=== PATIENT | female | born 1960 | race Caucasian/White ===

== ENCOUNTER 2022-03-11 22:30 | Inpatient (IN) | payer OTHER, SELFPAY ==
[2022-03-11] MEDS ORDERED: Ondansetron PF 4 MG/2 ML Vial IVP PRN (22:52)
[2022-03-11] MEDS ORDERED: Acetaminophen 325 MG TAB PO PRN (22:52)
[2022-03-11] MEDS ORDERED: Senokot S 8.6-50 MG TAB PO PRN (22:52)
[2022-03-11] MEDS ORDERED: Calcium Carbonate 500 MG ChewTAB PO PRN (22:52)
[2022-03-11] MEDS ORDERED: Guaifenesin DM 100-10/5 ML UDCUP PO PRN (22:52)
[2022-03-11] MEDS ORDERED: Nitroglycerin 0.4 MG TAB (25 Tab Bottle) SL PRN (22:55)
[2022-03-11] MEDS ORDERED: Benzonatate 100 MG CAP PO PRN (22:55)
[2022-03-11] MEDS ORDERED: methylPREDNISolone Sod Succ/PF 125 MG/2 ML VIAL IVP SCH (23:00)
[2022-03-11] MEDS ORDERED: Potassium Chloride 20 MEQ TAB PO SCH (23:15)
[2022-03-11] MEDS: Azithromycin 500 MG in Sodium Chloride 0.9% 250 ML 250 ML IVPB SCH (23:27)
[2022-03-12] MEDS: Nicotine 21 MG PATCH TD SCH ×2 (00:18→23:51)
[2022-03-12 04:40] LABS: Hemoglobin 10.6 g/dL (12.0-15.5); Mean Corpuscular HGB CONC 30.5 g/dL (32.0-36.0); Mean Corpuscular Hemoglobin 28.4 pg (27.0-33.0); Mean Corpuscular Volume 93.3 fl (81.6-98.3); Platelet Count 167 10x3/uL (150-450); RBC Distribution Width 15.5 % (11.5-14.5); Red Blood Cell (RBC) Count 3.73 10x6/uL (3.90-5.03); White Blood Cell (WBC) Count 7.4 10x3/uL (3.5-10.5)
[2022-03-12 04:55] LABS: Anion Gap 17 mmol/L (10-20); BUN (Urea Nitrogen) 15 mg/dL (9.8-20.1); Calc. Creatinine Clearance 114 mL/min (70-130); Carbon Dioxide 30 mmol/L (23-31); Chloride 101 mmol/L (98-107); Glucose 148 mg/dL (80-115); Potassium 3.8 mmol/L (3.5-5.1); Sodium 144 mmol/L (136-145)
[2022-03-12] MEDS: Furosemide 40 MG/4 ML VIAL SLOW IVP SCH ×2 (05:30→13:41)
[2022-03-12 06:23] LABS: MDiff Complete? YES
[2022-03-12 06:24] LABS: Band 9 % (5-11); Lymphocytes 5 % (21-51); Monocytes 2 % (0-10); Neutrophil 84 % (42-75)
[2022-03-12 06:26] LABS: Anisocytosis SLIGHT = 6-15 cells (100X) (0-5/hpf); Platelet Morphology Comment Appears Adequate
[2022-03-12] MEDS: Amiodarone 200 MG TAB PO SCH (09:26)
[2022-03-12] MEDS: Baclofen 10 MG TAB PO SCH ×2 (09:26→20:57)
[2022-03-12] MEDS: Apixaban 5 MG TAB PO SCH ×2 (09:26→20:56)
[2022-03-12] MEDS: Clopidogrel Bisulfate 75 MG TAB PO SCH (09:26)
[2022-03-12] MEDS: Venlafaxine HCl XR 75 MG CAP PO SCH (09:26)
[2022-03-12] MEDS: Famotidine 20 MG TAB PO SCH ×2 (09:26→20:56)
[2022-03-12] MEDS: Carvedilol 12.5 MG TAB PO SCH ×2 (09:26→20:56)
[2022-03-12] MEDS: methylPREDNISolone Sod Succ 40 MG VIAL IVP SCH ×3 (09:27→23:23)
[2022-03-12] MEDS: Senokot 8.6 MG TAB PO SCH ×2 (09:27→20:58)
[2022-03-12] MEDS: Amlodipine 10 MG TAB PO SCH (09:27)
[2022-03-12] MEDS: Pregabalin 75 MG CAP PO SCH ×3 (09:27→20:57)
[2022-03-12] MEDS: Docusate Sodium 100 MG/10 ML UDCUP PO SCH (09:27)
[2022-03-12] MEDS: guaiFENesin ER 600 MG TAB PO SCH ×2 (09:28→20:57)
[2022-03-12] MEDS: Prenatal Vitamin 1 TAB PO SCH (09:28)
[2022-03-12] MEDS: Mometasone/Formoterol 200/5 60 PUFF INH SCH ×2 (09:49→20:32)
[2022-03-12] MEDS: Atorvastatin Calcium 40 MG TAB PO SCH (20:57)
[2022-03-12] MEDS: Azithromycin 500 MG in Sodium Chloride 0.9% 250 ML 250 ML IVPB SCH (23:14)
[2022-03-13 05:56] LABS: #Monocytes 0.3 10x3/uL (0.0-1.1); #Neutrophils 7.6 10x3/uL (1.5-8.4); %Basophils 0.1 % (0.0-2.0); %Lymphocytes 5.2 % (18.0-47.0); %Neutrophils 90.2 % (40.0-75.0); Hemoglobin 10.2 g/dL (12.0-15.5); Mean Corpuscular HGB CONC 29.7 g/dL (32.0-36.0); Mean Corpuscular Hemoglobin 28.3 pg (27.0-33.0); Mean Corpuscular Volume 95.3 fl (81.6-98.3); Mean Platelet Volume 12.4 fl (7.4-10.4); Platelet Count 169 10x3/uL (150-450); RBC Distribution Width 15.6 % (11.5-14.5); Red Blood Cell (RBC) Count 3.61 10x6/uL (3.90-5.03); White Blood Cell (WBC) Count 8.4 10x3/uL (3.5-10.5)
[2022-03-13] MEDS: Furosemide 40 MG/4 ML VIAL SLOW IVP SCH ×2 (06:01→16:55)
[2022-03-13 06:11] LABS: Anion Gap 16 mmol/L (10-20); BUN (Urea Nitrogen) 25 mg/dL (9.8-20.1); Calc. Creatinine Clearance 104 mL/min (70-130); Calcium 8.9 mg/dL (7.8-10.44); Carbon Dioxide 33 mmol/L (23-31); Chloride 100 mmol/L (98-107); Glucose 160 mg/dL (80-115); Magnesium 2.5 mg/dL (1.6-2.6); Potassium 4.2 mmol/L (3.5-5.1); Sodium 145 mmol/L (136-145)
[2022-03-13] MEDS: Mometasone/Formoterol 200/5 60 PUFF INH SCH ×2 (07:10→19:21)
[2022-03-13] MEDS: Senokot 8.6 MG TAB PO SCH ×2 (08:55→23:56)
[2022-03-13] MEDS: Carvedilol 12.5 MG TAB PO SCH ×2 (08:55→20:45)
[2022-03-13] MEDS: Amlodipine 10 MG TAB PO SCH (08:55)
[2022-03-13] MEDS: Amiodarone 200 MG TAB PO SCH (08:56)
[2022-03-13] MEDS: Venlafaxine HCl XR 75 MG CAP PO SCH (08:56)
[2022-03-13] MEDS: Apixaban 5 MG TAB PO SCH ×2 (08:56→20:45)
[2022-03-13] MEDS: guaiFENesin ER 600 MG TAB PO SCH ×2 (08:56→20:45)
[2022-03-13] MEDS: methylPREDNISolone Sod Succ 40 MG VIAL IVP SCH ×2 (08:56→20:44)
[2022-03-13] MEDS: Clopidogrel Bisulfate 75 MG TAB PO SCH (08:56)
[2022-03-13] MEDS: Famotidine 20 MG TAB PO SCH ×2 (08:57→20:45)
[2022-03-13] MEDS: Prenatal Vitamin 1 TAB PO SCH (08:57)
[2022-03-13] MEDS: Baclofen 10 MG TAB PO SCH ×2 (08:57→20:44)
[2022-03-13] MEDS: Docusate Sodium 100 MG/10 ML UDCUP PO SCH (08:57)
[2022-03-13] MEDS: Pregabalin 75 MG CAP PO SCH ×2 (09:10→16:53)
[2022-03-13] MEDS: Atorvastatin Calcium 40 MG TAB PO SCH (20:45)
[2022-03-14] MEDS: Pregabalin 75 MG CAP PO SCH ×4 (00:54→21:18)
[2022-03-14] MEDS: Nicotine 21 MG PATCH TD SCH (00:54)
[2022-03-14] MEDS: Azithromycin 500 MG in Sodium Chloride 0.9% 250 ML 250 ML IVPB SCH (00:58)
[2022-03-14] MEDS: Furosemide 40 MG/4 ML VIAL SLOW IVP SCH ×2 (05:05→14:07)
[2022-03-14] MEDS: Mometasone/Formoterol 200/5 60 PUFF INH SCH ×2 (05:20→18:30)
[2022-03-14] MEDS: guaiFENesin ER 600 MG TAB PO SCH ×2 (08:45→21:18)
[2022-03-14] MEDS: methylPREDNISolone Sod Succ 40 MG VIAL IVP SCH ×2 (08:45→21:26)
[2022-03-14] MEDS: Clopidogrel Bisulfate 75 MG TAB PO SCH (08:46)
[2022-03-14] MEDS: Venlafaxine HCl XR 75 MG CAP PO SCH (08:46)
[2022-03-14] MEDS: Docusate Sodium 100 MG/10 ML UDCUP PO SCH (08:47)
[2022-03-14] MEDS: Amiodarone 200 MG TAB PO SCH (08:47)
[2022-03-14] MEDS: Baclofen 10 MG TAB PO SCH ×2 (08:47→21:17)
[2022-03-14] MEDS: Senokot 8.6 MG TAB PO SCH ×2 (08:47→21:18)
[2022-03-14] MEDS: Famotidine 20 MG TAB PO SCH ×2 (08:47→21:18)
[2022-03-14] MEDS: Prenatal Vitamin 1 TAB PO SCH (08:47)
[2022-03-14] MEDS: Carvedilol 12.5 MG TAB PO SCH ×2 (08:47→21:18)
[2022-03-14] MEDS: Apixaban 5 MG TAB PO SCH ×2 (08:47→21:17)
[2022-03-14] MEDS: Amlodipine 10 MG TAB PO SCH (08:49)
[2022-03-14] MEDS: Atorvastatin Calcium 40 MG TAB PO SCH (21:18)
[2022-03-15] MEDS: Azithromycin 500 MG in Sodium Chloride 0.9% 250 ML 250 ML IVPB SCH ×2 (00:33→23:38)
[2022-03-15] MEDS: Nicotine 21 MG PATCH TD SCH ×2 (00:49→23:39)
[2022-03-15 04:43] LABS: #Monocytes 0.4 10x3/uL (0.0-1.1); #Neutrophils 8.1 10x3/uL (1.5-8.4); %Basophils 0.1 % (0.0-2.0); %Lymphocytes 5.3 % (18.0-47.0); %Monocytes 4.1 % (0.0-10.0); %Neutrophils 90.2 % (40.0-75.0); Hemoglobin 10.6 g/dL (12.0-15.5); Mean Corpuscular HGB CONC 30.5 g/dL (32.0-36.0); Mean Corpuscular Hemoglobin 28.3 pg (27.0-33.0); Mean Platelet Volume 11.7 fl (7.4-10.4); Platelet Count 171 10x3/uL (150-450); RBC Distribution Width 15.4 % (11.5-14.5); Red Blood Cell (RBC) Count 3.74 10x6/uL (3.90-5.03)
[2022-03-15 05:00] LABS: Anion Gap 15 mmol/L (10-20); BUN (Urea Nitrogen) 29 mg/dL (9.8-20.1); Calc. Creatinine Clearance 132 mL/min (70-130); Carbon Dioxide 35 mmol/L (23-31); Chloride 98 mmol/L (98-107); Potassium 4.1 mmol/L (3.5-5.1); Sodium 144 mmol/L (136-145)
[2022-03-15 05:01] LABS: Calcium 8.8 mg/dL (7.8-10.44); Glucose 157 mg/dL (80-115); Magnesium 2.4 mg/dL (1.6-2.6)
[2022-03-15] MEDS: Furosemide 40 MG/4 ML VIAL SLOW IVP SCH ×3 (06:39→21:15)
[2022-03-15] MEDS: Mometasone/Formoterol 200/5 60 PUFF INH SCH ×2 (07:10→21:00)
[2022-03-15] MEDS: Docusate Sodium 100 MG/10 ML UDCUP PO SCH (08:31)
[2022-03-15] MEDS: methylPREDNISolone Sod Succ 40 MG VIAL IVP SCH ×2 (08:31→21:29)
[2022-03-15] MEDS: Famotidine 20 MG TAB PO SCH ×2 (08:33→21:21)
[2022-03-15] MEDS: Prenatal Vitamin 1 TAB PO SCH (08:33)
[2022-03-15] MEDS: Clopidogrel Bisulfate 75 MG TAB PO SCH (08:33)
[2022-03-15] MEDS: guaiFENesin ER 600 MG TAB PO SCH ×2 (08:33→21:21)
[2022-03-15] MEDS: Venlafaxine HCl XR 75 MG CAP PO SCH (08:33)
[2022-03-15] MEDS: Pregabalin 75 MG CAP PO SCH ×3 (08:33→21:22)
[2022-03-15] MEDS: Apixaban 5 MG TAB PO SCH ×2 (08:33→21:21)
[2022-03-15] MEDS: Amiodarone 200 MG TAB PO SCH (08:34)
[2022-03-15] MEDS: Baclofen 10 MG TAB PO SCH ×2 (08:34→21:21)
[2022-03-15] MEDS: Carvedilol 12.5 MG TAB PO SCH (08:34)
[2022-03-15] MEDS: Senokot 8.6 MG TAB PO SCH ×2 (08:34→21:21)
[2022-03-15] MEDS: Amlodipine 10 MG TAB PO SCH (08:52)
[2022-03-15] MEDS ORDERED: Lisinopril 10 MG TAB PO SCH (18:00)
[2022-03-15] MEDS: Atorvastatin Calcium 40 MG TAB PO SCH (21:21)
[2022-03-15] MEDS: Carvedilol 25 MG TAB PO SCH (21:21)
[2022-03-16] MEDS: Furosemide 40 MG/4 ML VIAL SLOW IVP SCH ×2 (04:30→22:00)
[2022-03-16 05:47] LABS: BUN (Urea Nitrogen) 35 mg/dL (9.8-20.1); Calc. Creatinine Clearance 120 mL/min (70-130); Calcium 8.9 mg/dL (7.8-10.44); Glucose 177 mg/dL (80-115)
[2022-03-16 05:56] LABS: Anion Gap 19 mmol/L (10-20); Carbon Dioxide 36 mmol/L (23-31); Chloride 94 mmol/L (98-107); Potassium 3.9 mmol/L (3.5-5.1); Sodium 145 mmol/L (136-145)
[2022-03-16] MEDS: Mometasone/Formoterol 200/5 60 PUFF INH SCH ×2 (07:24→17:23)
[2022-03-16] MEDS: Docusate Sodium 100 MG/10 ML UDCUP PO SCH (09:53)
[2022-03-16] MEDS: Lisinopril 10 MG TAB PO SCH (10:08)
[2022-03-16] MEDS: guaiFENesin ER 600 MG TAB PO SCH ×2 (10:08→22:00)
[2022-03-16] MEDS: Prenatal Vitamin 1 TAB PO SCH (10:08)
[2022-03-16] MEDS: Senokot 8.6 MG TAB PO SCH ×2 (10:08→22:00)
[2022-03-16] MEDS: Apixaban 5 MG TAB PO SCH ×2 (10:08→22:03)
[2022-03-16] MEDS: Clopidogrel Bisulfate 75 MG TAB PO SCH (10:09)
[2022-03-16] MEDS: Carvedilol 25 MG TAB PO SCH ×2 (10:09→22:00)
[2022-03-16] MEDS: Pregabalin 75 MG CAP PO SCH ×3 (10:09→22:00)
[2022-03-16] MEDS: Amiodarone 200 MG TAB PO SCH (10:09)
[2022-03-16] MEDS: Famotidine 20 MG TAB PO SCH ×2 (10:09→22:00)
[2022-03-16] MEDS: Venlafaxine HCl XR 75 MG CAP PO SCH (10:09)
[2022-03-16] MEDS: methylPREDNISolone Sod Succ 40 MG VIAL IVP SCH ×2 (10:10→22:05)
[2022-03-16] MEDS: Baclofen 10 MG TAB PO SCH ×2 (10:10→22:00)
[2022-03-16] MEDS: Amlodipine 10 MG TAB PO SCH (10:10)
[2022-03-16] MEDS: Atorvastatin Calcium 40 MG TAB PO SCH (22:00)
[2022-03-16] MEDS: Nicotine 21 MG PATCH TD SCH (23:10)
[2022-03-16] MEDS: Azithromycin 500 MG in Sodium Chloride 0.9% 250 ML 250 ML IVPB SCH (23:24)
[2022-03-17 05:10] LABS: #Monocytes 0.4 10x3/uL (0.0-1.1); #Neutrophils 10.4 10x3/uL (1.5-8.4); %Lymphocytes 4.3 % (18.0-47.0); %Monocytes 3.4 % (0.0-10.0); Hemoglobin 11.8 g/dL (12.0-15.5); Mean Corpuscular HGB CONC 30.7 g/dL (32.0-36.0); Mean Corpuscular Hemoglobin 28.2 pg (27.0-33.0); Mean Corpuscular Volume 91.6 fl (81.6-98.3); Mean Platelet Volume 11.7 fl (7.4-10.4); Platelet Count 174 10x3/uL (150-450); RBC Distribution Width 15.1 % (11.5-14.5); Red Blood Cell (RBC) Count 4.19 10x6/uL (3.90-5.03); White Blood Cell (WBC) Count 11.2 10x3/uL (3.5-10.5)
[2022-03-17 05:17] LABS: BUN (Urea Nitrogen) 33 mg/dL (9.8-20.1); Calc. Creatinine Clearance 131 mL/min (70-130); Glucose 166 mg/dL (80-115); Magnesium 2.3 mg/dL (1.6-2.6); Phosphorus 4.5 mg/dL (2.3-4.7)
[2022-03-17 05:25] LABS: Anion Gap 16 mmol/L (10-20); Carbon Dioxide 39 mmol/L (23-31); Chloride 93 mmol/L (98-107); Potassium 4.2 mmol/L (3.5-5.1); Sodium 144 mmol/L (136-145)
[2022-03-17] MEDS: Mometasone/Formoterol 200/5 60 PUFF INH SCH ×2 (06:54→18:36)
[2022-03-17] MEDS: Pregabalin 75 MG CAP PO SCH ×3 (09:00→20:42)
[2022-03-17] MEDS: Venlafaxine HCl XR 75 MG CAP PO SCH (09:00)
[2022-03-17] MEDS: Furosemide 40 MG/4 ML VIAL SLOW IVP SCH ×2 (09:00→20:42)
[2022-03-17] MEDS: methylPREDNISolone Sod Succ 40 MG VIAL IVP SCH ×2 (09:00→20:43)
[2022-03-17] MEDS: Senokot 8.6 MG TAB PO SCH ×2 (09:01→20:41)
[2022-03-17] MEDS: Carvedilol 25 MG TAB PO SCH ×2 (09:01→20:41)
[2022-03-17] MEDS: Amlodipine 10 MG TAB PO SCH (09:01)
[2022-03-17] MEDS: Amiodarone 200 MG TAB PO SCH (09:01)
[2022-03-17] MEDS: Baclofen 10 MG TAB PO SCH ×2 (09:01→20:41)
[2022-03-17] MEDS: Clopidogrel Bisulfate 75 MG TAB PO SCH (09:01)
[2022-03-17] MEDS: guaiFENesin ER 600 MG TAB PO SCH ×2 (09:01→20:42)
[2022-03-17] MEDS: Lisinopril 10 MG TAB PO SCH (09:01)
[2022-03-17] MEDS: Famotidine 20 MG TAB PO SCH ×2 (09:01→20:41)
[2022-03-17] MEDS: Apixaban 5 MG TAB PO SCH ×2 (09:01→20:41)
[2022-03-17] MEDS: Prenatal Vitamin 1 TAB PO SCH (09:02)
[2022-03-17] MEDS: Docusate Sodium 100 MG/10 ML UDCUP PO SCH (09:02)
[2022-03-17] MEDS: Atorvastatin Calcium 40 MG TAB PO SCH (20:42)
[2022-03-17] MEDS: Azithromycin 500 MG in Sodium Chloride 0.9% 250 ML 250 ML IVPB SCH (23:59)
[2022-03-18] MEDS: Nicotine 21 MG PATCH TD SCH ×3 (00:09→23:09)
[2022-03-18] MEDS: Mometasone/Formoterol 200/5 60 PUFF INH SCH ×2 (07:04→19:20)
[2022-03-18] MEDS: Docusate Sodium 100 MG/10 ML UDCUP PO SCH (08:56)
[2022-03-18] MEDS: Venlafaxine HCl XR 75 MG CAP PO SCH (08:57)
[2022-03-18] MEDS: Amiodarone 200 MG TAB PO SCH (08:57)
[2022-03-18] MEDS: Famotidine 20 MG TAB PO SCH ×2 (08:57→20:45)
[2022-03-18] MEDS: Furosemide 40 MG/4 ML VIAL SLOW IVP SCH ×2 (08:57→20:44)
[2022-03-18] MEDS: methylPREDNISolone Sod Succ 40 MG VIAL IVP SCH ×2 (08:57→20:44)
[2022-03-18] MEDS: Senokot 8.6 MG TAB PO SCH ×2 (08:57→17:32)
[2022-03-18] MEDS: Prenatal Vitamin 1 TAB PO SCH (08:58)
[2022-03-18] MEDS: Apixaban 5 MG TAB PO SCH ×2 (08:58→20:45)
[2022-03-18] MEDS: Amlodipine 10 MG TAB PO SCH (08:58)
[2022-03-18] MEDS: Lisinopril 10 MG TAB PO SCH (08:58)
[2022-03-18] MEDS: Baclofen 10 MG TAB PO SCH ×2 (08:58→20:45)
[2022-03-18] MEDS: Carvedilol 25 MG TAB PO SCH ×2 (08:58→20:45)
[2022-03-18] MEDS: guaiFENesin ER 600 MG TAB PO SCH ×2 (08:58→20:46)
[2022-03-18] MEDS: Clopidogrel Bisulfate 75 MG TAB PO SCH (08:58)
[2022-03-18] MEDS: Pregabalin 75 MG CAP PO SCH ×3 (09:03→20:45)
[2022-03-18] MEDS: Atorvastatin Calcium 40 MG TAB PO SCH (20:45)
[2022-03-18] MEDS: Azithromycin 500 MG in Sodium Chloride 0.9% 250 ML 250 ML IVPB SCH (23:08)
[2022-03-19] MEDS: Mometasone/Formoterol 200/5 60 PUFF INH SCH ×2 (05:55→19:50)
[2022-03-19] MEDS: Docusate Sodium 100 MG/10 ML UDCUP PO SCH (10:27)
[2022-03-19] MEDS: Furosemide 40 MG/4 ML VIAL SLOW IVP SCH (10:27)
[2022-03-19] MEDS: Prenatal Vitamin 1 TAB PO SCH (10:29)
[2022-03-19] MEDS: Amiodarone 200 MG TAB PO SCH (10:29)
[2022-03-19] MEDS: Amlodipine 10 MG TAB PO SCH (10:29)
[2022-03-19] MEDS: Carvedilol 25 MG TAB PO SCH (10:30)
[2022-03-19] MEDS: Famotidine 20 MG TAB PO SCH (10:30)
[2022-03-19] MEDS: Baclofen 10 MG TAB PO SCH (10:30)
[2022-03-19] MEDS: Clopidogrel Bisulfate 75 MG TAB PO SCH (10:30)
[2022-03-19] MEDS: Apixaban 5 MG TAB PO SCH (10:30)
[2022-03-19] MEDS: Senokot 8.6 MG TAB PO SCH (10:35)
[2022-03-19] MEDS: Venlafaxine HCl XR 75 MG CAP PO SCH (10:35)
[2022-03-19] MEDS: methylPREDNISolone Sod Succ 40 MG VIAL IVP SCH (10:35)
[2022-03-19] MEDS: guaiFENesin ER 600 MG TAB PO SCH (10:36)
[2022-03-19] MEDS: Lisinopril 10 MG TAB PO SCH (10:37)
[2022-03-19 10:41] VITALS: BMI 45.6
[2022-03-19] MEDS: Pregabalin 75 MG CAP PO SCH ×2 (10:41→16:47)
[2022-03-19 16:45] VITALS: BP 144/69; TEMP 96.8
[2022-03-20] MEDS ORDERED: Furosemide 40 MG TAB PO SCH (07:30)
[2022-03-20] MEDS ORDERED: predniSONE 20 MG TAB PO SCH (08:00)
== END 2022-03-19 21:15 | DRG 189 ==
LOC: CSHTELE 22:30
PROVIDERS: ADMIT Student in an Organized Health Care Education/Training Program; ATTEND Student in an Organized Health Care Education/Training Program
DX: J96.21 Acute and chronic respiratory failure with hypoxia (principal); J44.1 Chronic obstructive pulmonary disease with (acute) exacerbation; I50.32 Chronic diastolic (congestive) heart failure; Z68.42 Body mass index [BMI] 45.0-49.9, adult; E87.6 Hypokalemia; E78.5 Hyperlipidemia, unspecified; I25.10 Atherosclerotic heart disease of native coronary artery without angina pectoris; I48.0 Paroxysmal atrial fibrillation; K21.9 Gastro-esophageal reflux disease without esophagitis; M54.16 Radiculopathy, lumbar region; M47.816 Spondylosis without myelopathy or radiculopathy, lumbar region; E66.01 Morbid (severe) obesity due to excess calories; F17.210 Nicotine dependence, cigarettes, uncomplicated; I11.0 Hypertensive heart disease with heart failure; F41.9 Anxiety disorder, unspecified; F32.A Depression, unspecified; Z79.01 Long term (current) use of anticoagulants; Z79.51 Long term (current) use of inhaled steroids; Z79.899 Other long term (current) drug therapy; Z88.5 Allergy status to narcotic agent; Z88.8 Allergy status to other drugs, medicaments and biological substances; Z95.1 Presence of aortocoronary bypass graft; Z95.5 Presence of coronary angioplasty implant and graft; Z98.891 History of uterine scar from previous surgery; Z98.890 Other specified postprocedural states; Z72.89 Other problems related to lifestyle; Z82.49 Family history of ischemic heart disease and other diseases of the circulatory system; Z79.02 Long term (current) use of antithrombotics/antiplatelets
CPT/HCPCS: 36415; 71045; 80048; 83735; 83880; 84100; 84443; 84484; 85025; 93306; 94664; 94760; J0456; J1940; J2920; J2930; J7050; J7620

== ENCOUNTER 2023-06-12 00:36 | Inpatient (IN) | payer OTHER ==
[2023-06-12] MEDS ORDERED: hydrALAZINE 20 MG/ML VIAL ONE (04:31)
[2023-06-12] MEDS ORDERED: Furosemide 40 MG/4 ML VIAL ONE (04:31)
[2023-06-12] MEDS ORDERED: Carvedilol 12.5 MG TAB ONE (04:45)
[2023-06-12] MEDS ORDERED: Ipratropium/Albuterol 3 ML NEB ONE (05:16)
[2023-06-12] MEDS ORDERED: Acetaminophen 325 MG TAB PO PRN (08:21)
[2023-06-12] MEDS ORDERED: Acetaminophen 650 MG Suppository PR PRN (08:21)
[2023-06-12] MEDS ORDERED: Ondansetron ODT 4 MG TAB PO PRN (08:21)
[2023-06-12] MEDS ORDERED: Ondansetron PF 4 MG/2 ML Vial IVP PRN (08:21)
[2023-06-12] MEDS ORDERED: Ipratropium/Albuterol 3 ML NEB NEB PRN (08:23)
[2023-06-12] MEDS ORDERED: Carvedilol 25 MG TAB PO SCH (09:00)
[2023-06-12] MEDS ORDERED: HYDROcodone/Acetaminophen 5/325 mg Tablet PO PRN (09:11)
[2023-06-12] MEDS ORDERED: Furosemide 40 MG TAB PO SCH (09:30)
[2023-06-12] MEDS ORDERED: Clopidogrel Bisulfate 75 MG TAB PO SCH (09:30)
[2023-06-12] MEDS ORDERED: Apixaban 5 MG TAB PO SCH (09:30)
[2023-06-12] MEDS: levETIRAcetam 500 MG TAB PO SCH ×2 (10:26→21:35)
[2023-06-12] MEDS: Amiodarone 200 MG TAB PO SCH (10:27)
[2023-06-12] MEDS ORDERED: Carvedilol 12.5 MG TAB PO SCH (10:45)
[2023-06-12 10:48] VITALS: BMI 36.0
[2023-06-12] MEDS: methylPREDNISolone Sod Succ 40 MG VIAL IVP SCH ×2 (11:48→18:38)
[2023-06-12] MEDS ORDERED: Gabapentin 300 MG CAP PO SCH (15:00)
[2023-06-12] MEDS: Ipratropium/Albuterol 3 ML NEB NEB SCH ×2 (15:05→20:00)
[2023-06-12] MEDS: Ferrous Sulfate 325 MG TAB PO SCH (16:23)
[2023-06-12] MEDS: Furosemide 40 MG TAB PO SCH (16:23)
[2023-06-12] MEDS: Gabapentin 300 MG CAP PO SCH ×2 (16:23→21:36)
[2023-06-12] MEDS: Arformoterol 15 MCG/2 ML NEB NEB SCH (20:10)
[2023-06-12] MEDS: Mometasone 100 MCG/PUFF (1 INHALER) INH SCH (20:20)
[2023-06-12] MEDS: Cyanocobalamin (Vitamin B-12) 1,000 MCG TAB PO SCH (21:35)
[2023-06-12] MEDS: Carvedilol 12.5 MG TAB PO SCH (21:35)
[2023-06-12] MEDS: Apixaban 5 MG TAB PO SCH (21:35)
[2023-06-12] MEDS: Folic Acid 1 MG TAB PO SCH (21:36)
[2023-06-12] MEDS: Baclofen 10 MG TAB PO SCH (21:36)
[2023-06-13] MEDS: methylPREDNISolone Sod Succ 40 MG VIAL IVP SCH ×2 (00:23→05:59)
[2023-06-13] MEDS: Ipratropium/Albuterol 3 ML NEB NEB SCH ×4 (00:35→19:20)
[2023-06-13 05:05] LABS: #Eosinphils 0.2 10x3/uL (0.0-0.5); #Monocytes 0.1 10x3/uL (0.0-1.1); #Neutrophils 9.2 10x3/uL (1.5-8.4); %Eosinophils 1.9 % (0.0-6.0); %Lymphocytes 4.1 % (18.0-47.0); %Monocytes 1.1 % (0.0-10.0); %Neutrophils 92.6 % (40.0-75.0); Hematocrit 41.3 % (34.9-44.5); Hemoglobin 12.8 g/dL (12.0-15.5); Mean Corpuscular Hemoglobin 28.8 pg (27.0-33.0); Mean Platelet Volume 11.4 fl (7.4-10.4); Platelet Count 182 10x3/uL (150-450); RBC Distribution Width 14.6 % (11.5-14.5); Red Blood Cell (RBC) Count 4.44 10x6/uL (3.90-5.03); White Blood Cell (WBC) Count 9.9 10x3/uL (3.5-10.5)
[2023-06-13 05:17] LABS: Anion Gap 16 mmol/L (10-20); BUN (Urea Nitrogen) 23 mg/dL (9.8-20.1); Calc. Creatinine Clearance 88 mL/min (70-130); Calcium 8.7 mg/dL (7.8-10.44); Carbon Dioxide 29 mmol/L (23-31); Chloride 103 mmol/L (98-107); Estimated GFR 66; Glucose 152 mg/dL (80-115); Potassium 3.9 mmol/L (3.5-5.1); Sodium 144 mmol/L (136-145)
[2023-06-13] MEDS: Mometasone 100 MCG/PUFF (1 INHALER) INH SCH ×2 (07:35→19:10)
[2023-06-13] MEDS: Arformoterol 15 MCG/2 ML NEB NEB SCH ×2 (07:45→19:00)
[2023-06-13] MEDS: levETIRAcetam 500 MG TAB PO SCH ×2 (08:59→20:55)
[2023-06-13] MEDS: Gabapentin 300 MG CAP PO SCH ×3 (08:59→20:56)
[2023-06-13] MEDS: Clopidogrel Bisulfate 75 MG TAB PO SCH (08:59)
[2023-06-13] MEDS: Cyanocobalamin (Vitamin B-12) 1,000 MCG TAB PO SCH ×2 (09:00→20:55)
[2023-06-13] MEDS: Amiodarone 200 MG TAB PO SCH (09:00)
[2023-06-13] MEDS: Furosemide 40 MG TAB PO SCH ×2 (09:00→17:23)
[2023-06-13] MEDS: Potassium Chloride 20 MEQ TAB PO SCH (09:00)
[2023-06-13] MEDS: Carvedilol 12.5 MG TAB PO SCH ×2 (09:00→20:55)
[2023-06-13] MEDS: Venlafaxine HCl XR 75 MG CAP PO SCH (09:00)
[2023-06-13] MEDS: Baclofen 10 MG TAB PO SCH ×2 (09:00→20:56)
[2023-06-13] MEDS: Apixaban 5 MG TAB PO SCH ×2 (09:00→20:55)
[2023-06-13] MEDS: Amlodipine 5 MG TAB PO SCH (09:00)
[2023-06-13] MEDS: Nystatin Powder 15 GM BOT TOP SCH ×2 (11:31→20:57)
[2023-06-13] MEDS: Ferrous Sulfate 325 MG TAB PO SCH (17:22)
[2023-06-13] MEDS: Folic Acid 1 MG TAB PO SCH (20:56)
[2023-06-13] MEDS ORDERED: Atorvastatin Calcium 40 MG TAB PO SCH (21:00)
[2023-06-14] MEDS: Ipratropium/Albuterol 3 ML NEB NEB SCH ×3 (01:05→13:50)
[2023-06-14 04:29] LABS: #Monocytes 0.8 10x3/uL (0.0-1.1); #Neutrophils 9.7 10x3/uL (1.5-8.4); %Basophils 0.1 % (0.0-2.0); %Lymphocytes 10.5 % (18.0-47.0); %Monocytes 6.9 % (0.0-10.0); %Neutrophils 82.2 % (40.0-75.0); Hemoglobin 11.8 g/dL (12.0-15.5); Mean Corpuscular HGB CONC 30.3 g/dL (32.0-36.0); Mean Corpuscular Hemoglobin 28.7 pg (27.0-33.0); Mean Corpuscular Volume 94.9 fl (81.6-98.3); Mean Platelet Volume 11.5 fl (7.4-10.4); Platelet Count 175 10x3/uL (150-450); RBC Distribution Width 14.8 % (11.5-14.5); Red Blood Cell (RBC) Count 4.11 10x6/uL (3.90-5.03); White Blood Cell (WBC) Count 11.8 10x3/uL (3.5-10.5)
[2023-06-14 04:46] LABS: ALT (SGPT) 19 U/L (8-55); AST (SGOT) 16 U/L (5-34); Albumin 3.4 g/dL (3.4-4.8); Alkaline Phosphatase 99 U/L (40-110); Bilirubin, Direct 0.1 mg/dL (0.1-0.3); Bilirubin, Total 0.2 mg/dL (0.2-1.2); Protein, Total 6.1 g/dL (5.8-8.1)
[2023-06-14 04:48] LABS: Anion Gap 13 mmol/L (10-20); BUN (Urea Nitrogen) 32 mg/dL (9.8-20.1); Calc. Creatinine Clearance 88 mL/min (70-130); Calcium 8.1 mg/dL (7.8-10.44); Carbon Dioxide 31 mmol/L (23-31); Chloride 103 mmol/L (98-107); Estimated GFR 66; Glucose 118 mg/dL (80-115); Magnesium 2.3 mg/dL (1.6-2.6); Potassium 3.7 mmol/L (3.5-5.1); Sodium 143 mmol/L (136-145)
[2023-06-14] MEDS: Arformoterol 15 MCG/2 ML NEB NEB SCH (07:30)
[2023-06-14] MEDS: Mometasone 100 MCG/PUFF (1 INHALER) INH SCH (07:30)
[2023-06-14] MEDS ORDERED: predniSONE 20 MG TAB PO SCH (08:00)
[2023-06-14] MEDS: Venlafaxine HCl XR 75 MG CAP PO SCH (08:45)
[2023-06-14] MEDS: Baclofen 10 MG TAB PO SCH (08:45)
[2023-06-14] MEDS: Gabapentin 300 MG CAP PO SCH ×2 (08:46→16:38)
[2023-06-14] MEDS: Amlodipine 5 MG TAB PO SCH (08:46)
[2023-06-14] MEDS: Carvedilol 12.5 MG TAB PO SCH (08:46)
[2023-06-14] MEDS: Amiodarone 200 MG TAB PO SCH (08:46)
[2023-06-14] MEDS: Furosemide 40 MG TAB PO SCH ×2 (08:46→16:38)
[2023-06-14] MEDS: Clopidogrel Bisulfate 75 MG TAB PO SCH (08:46)
[2023-06-14] MEDS: Apixaban 5 MG TAB PO SCH (08:46)
[2023-06-14] MEDS: levETIRAcetam 500 MG TAB PO SCH (08:46)
[2023-06-14] MEDS: Cyanocobalamin (Vitamin B-12) 1,000 MCG TAB PO SCH (08:46)
[2023-06-14] MEDS: Potassium Chloride 20 MEQ TAB PO SCH (08:46)
[2023-06-14] MEDS: Nystatin Powder 15 GM BOT TOP SCH (08:47)
[2023-06-14] MEDS: Ferrous Sulfate 325 MG TAB PO SCH (16:38)
[2023-06-14 18:19] VITALS: BP 160/96; TEMP 98.2
== END 2023-06-14 18:05 | disposition home or self-care (01) | DRG 189 ==
LOC: CSHERS 00:36 → CSHTELE 06:08
PROVIDERS: ADMIT Family Medicine; ATTEND Family Medicine
DX: J96.01 Acute respiratory failure with hypoxia (principal); J44.1 Chronic obstructive pulmonary disease with (acute) exacerbation; I50.32 Chronic diastolic (congestive) heart failure; L97.929 Non-pressure chronic ulcer of unspecified part of left lower leg with unspecified severity; I11.0 Hypertensive heart disease with heart failure; K21.9 Gastro-esophageal reflux disease without esophagitis; M19.90 Unspecified osteoarthritis, unspecified site; F41.9 Anxiety disorder, unspecified; F32.A Depression, unspecified; F17.210 Nicotine dependence, cigarettes, uncomplicated; E04.1 Nontoxic single thyroid nodule; E66.9 Obesity, unspecified; I48.0 Paroxysmal atrial fibrillation; I25.10 Atherosclerotic heart disease of native coronary artery without angina pectoris; Z95.5 Presence of coronary angioplasty implant and graft; Z88.8 Allergy status to other drugs, medicaments and biological substances; I25.2 Old myocardial infarction; Z98.890 Other specified postprocedural states; Z95.1 Presence of aortocoronary bypass graft; Z79.899 Other long term (current) drug therapy; Z79.51 Long term (current) use of inhaled steroids; Z79.01 Long term (current) use of anticoagulants; Z68.36 Body mass index [BMI] 36.0-36.9, adult
CPT/HCPCS: 36415; 80048; 80076; 83735; 85025; 93970; 94640; 94664; 94760; 96374; 96375; 97139; J0360; J1940; J2920; J7512; J7620; Q0162